=== PATIENT | female | born 1975 ===

== ENCOUNTER 2018-01-07 16:15 | Outpatient (CLI) | payer BC | END 2018-01-07 16:16 | disposition home or self-care (01) | LOC: BICRAD 16:15 | PROVIDERS: ATTEND Student in an Organized Health Care Education/Training Program | DX: N64.4 Mastodynia (principal); M79.629 Pain in unspecified upper arm | CPT/HCPCS: 71046 ==

== ENCOUNTER 2018-01-15 10:26 | Outpatient (CLI) | payer BC | END 2018-01-15 10:27 | disposition home or self-care (01) | LOC: BICMAMMO 10:26 | PROVIDERS: ATTEND Student in an Organized Health Care Education/Training Program | DX: M79.622 Pain in left upper arm; N64.4 Mastodynia; Z80.3 Family history of malignant neoplasm of breast | CPT/HCPCS: 77066; G0279 ==